=== PATIENT | female | born 1960 | race African-American/Black ===

== ENCOUNTER → 2016-04-14 | Outpatient (CLI) | payer OTHER | LOC: WI 04-06 09:23 | PROVIDERS: ATTEND Internal Medicine | DX: E21.0 Primary hyperparathyroidism (principal); M85.88 Other specified disorders of bone density and structure, other site | CPT/HCPCS: 77080 ==

== ENCOUNTER → 2016-08-18 | Outpatient (CLI) | payer OTHER ==
[2016-08-18 14:58] LABS: ANION GAP 8 (5-19); BLOOD UREA NITROGEN 15 mg/dL (7-20); CALCIUM 11.7 mg/dL (8.4-10.2); CARBON DIOXIDE 29 mmol/L (22-30); CHLORIDE 104 mmol/L (98-107); CREATININE RESULT 0.96 mg/dL (0.52-1.25); GLUCOSE 110 mg/dL (75-110); PHOSPHORUS 2.8 mg/dL (2.5-4.5); POTASSIUM 4.2 mmol/L (3.6-5.0); SODIUM 141.3 mmol/L (137-145)
[2016-08-20 07:28] LABS: VITAMIN D 25-HYDROXY 10.8 ng/mL (30.0-100.0)
== END ==
LOC: OD 13:08
PROVIDERS: ATTEND Physician Assistant Surgical
DX: E21.3 Hyperparathyroidism, unspecified (principal); R89.9 Unspecified abnormal finding in specimens from other organs, systems and tissues
CPT/HCPCS: 36415; 80048; 82306; 83970; 84100

== ENCOUNTER → 2016-08-28 | Outpatient (CLI) | payer OTHER ==
--- NOTE | 2016-08-28 14:32 | RADIOLOGY REPORT (SQ) ---
EXAM DESCRIPTION: NM PARATHYROID IMAGING COMPLETED DATE/TIME: 08/28/2016 1:55 pm REASON FOR STUDY: HYPERPARATHYROIDISM E21.3 HYPERPARATHYROIDISM, UNSPECIFIED R89.9 UNSP ABNORMAL F INDING IN SPECIMENS FROM OTH ORG/TISS COMPARISON: None. RADIONUCLIDE AND DOSE: 21.3 millicuries Tc-99m Sestamibi. The route of agent administration: Intravenous ADDITIONAL DRUGS AND DOSES: None. TECHNIQUE: Early and delayed images of the neck acquired following radionuclide administration. LIMITATIONS: None. FINDINGS: Thyroid: Normal size. Homogeneous activity. Normal washout. No focal lesions. Parathyroid: There appears to be retained activity at the level of the lower pole of the right thyroi d lobe suspicious for a parathyroid adenoma. Other: No other significant findings. IMPRESSION: Retain activity at the level of the lower pole of the right thyroid lobe suspicious for a parathyroid adenoma. TECHNICAL DOCUMENTATION: JOB ID: [id number] [employer]- All Rights Reserved
== END ==
LOC: RAD 07:39
PROVIDERS: ATTEND Surgery
DX: E21.3 Hyperparathyroidism, unspecified (principal); R89.9 Unspecified abnormal finding in specimens from other organs, systems and tissues
CPT/HCPCS: 78070; A9500; Q9969

== ENCOUNTER → 2016-09-01 | Outpatient (CLI) | payer OTHER ==
--- NOTE | 2016-09-01 09:22 | RADIOLOGY REPORT (SQ) ---
EXAM DESCRIPTION: CHEST PA/LATERAL COMPLETED DATE/TIME: 09/01/2016 9:04 am REASON FOR STUDY: HYPERPARATHYROIDISM, UNSPECIFIED COMPARISON: None. EXAM PARAMETERS: NUMBER OF VIEWS: two views TECHNIQUE: Digital Frontal and Lateral radiographic views of the chest acquired. RADIATION DOSE: NA LIMITATIONS: none FINDINGS: LUNGS AND PLEURA: No opacities, masses or pneumothorax. No pleural effusion. MEDIASTINUM AND HILAR STRUCTURES: No masses or contour abnormalities. HEART AND VASCULAR STRUCTURES: Heart normal size. No evidence for failure. BONES: No acute findings. HARDWARE: None in the chest. OTHER: No other significant finding. IMPRESSION: NO SIGNIFICANT RADIOGRAPHIC FINDING IN THE CHEST. TECHNICAL DOCUMENTATION: JOB ID: [id number] [employer]- All Rights Reserved
== END ==
LOC: OD 08:57
PROVIDERS: ATTEND Surgery
DX: E21.3 Hyperparathyroidism, unspecified (principal)
CPT/HCPCS: 71020

== ENCOUNTER 2016-10-21 05:33 | Day surgery (SDC) | payer OTHER ==
[2016-10-14 09:59] LABS: PARTIAL THROMBOPLASTIN TIME 31.3 SEC (23.5-35.8); PROTHROMBIN TIME 12.5 SEC (11.4-15.4)
[2016-10-14 10:25] LABS: ANION GAP 10 (5-19); BLOOD UREA NITROGEN 16 mg/dL (7-20); CALCIUM 11.9 mg/dL (8.4-10.2); CARBON DIOXIDE 26 mmol/L (22-30); CHLORIDE 107 mmol/L (98-107); CREATININE RESULT 0.92 mg/dL (0.52-1.25); GLUCOSE 82 mg/dL (75-110); POTASSIUM 4.5 mmol/L (3.6-5.0); SODIUM 143.2 mmol/L (137-145)
--- NOTE | 2016-10-14 19:43 | EKG REPORT ---
SEVERITY:- ABNORMAL ECG - SINUS RHYTHM FIRST DEGREE AV BLOCK : Confirmed by: Peyman Manning MD 14-Oct-2016 19:43:09
[~2016-10-21 05:33] MED LIST: LACTATED RINGERS 1000 ML IV PRN; LIDOCAINE 0.5% INJ-PF (5 MG/ML) 50 ML SDV SUBCUT PRN
[2016-10-21] MEDS ORDERED: MICROFIBRILLAR COLLAGEN 1 GM PACK ONE (06:38)
[2016-10-21] MEDS ORDERED: MIDAZOLAM 2 MG/2 ML INJ ONE (07:17)
[2016-10-21] MEDS ORDERED: FENTANYL CITRATE INJ/PF 250 MCG/5 ML AMPULE ONE (07:17)
[2016-10-21] MEDS ORDERED: MORPHINE SULFATE 10 MG/ML INJ ONE (07:17)
[2016-10-21] MEDS ORDERED: PROPOFOL INJ 200 MG/20 ML VIAL IV ONE (07:17)
[2016-10-21] MEDS ORDERED: MEPERIDINE HCL/PF INJ 25 MG/1 ML DISP.SYRIN IV PRN (08:17)
[2016-10-21] MEDS ORDERED: MORPHINE SULFATE 10 MG/ML INJ IV PRN ×3 (08:17→08:47)
[2016-10-21] MEDS ORDERED: DIPHENHYDRAMINE HCL 50 MG/ML VIAL IV PRN (08:17)
[2016-10-21] MEDS ORDERED: FENTANYL CITRATE INJ/PF 100 MCG/2 ML AMPUL IV PRN ×3 (08:17)
[2016-10-21] MEDS ORDERED: PROMETHAZINE HCL INJ 25 MG/1 ML VIAL IV PRN ×2 (08:17)
[2016-10-21] MEDS ORDERED: LIDOCAINE 1% INJ-PF (10 MG/ML) 30 ML SDV ONE (08:27)
[2016-10-21] MEDS ORDERED: ONDANSETRON HCL INJ/PF 4 MG/2 ML SDV IV PRN (08:39)
[2016-10-21] MEDS ORDERED: ACETAMINOPHEN 325 MG TABLET PO PRN (08:47)
[2016-10-21] MEDS ORDERED: DEXTROSE 5%-LACTATED RINGERS 1,000 ML IV PRN (08:47)
--- NOTE | 2016-10-21 08:51 | Operative Report ---
Operative Report DATE OF SURGERY: 10/21/16 PREOPERATIVE DIAGNOSIS: Primary hyperparathyroidism POSTOPERATIVE DIAGNOSIS: Same OPERATION: Neck exploration with right lower parathyroidectomy. Use of intraoperative ultrasonography SURGEON: MCKAY P[employer] MECHANIC: SHARON CURRIE ANESTHESIA: GA TISSUE REMOVED OR ALTERED: 1 right lower neck parathyroid gland consistent with adenoma COMPLICATIONS: None ESTIMATED BLOOD LOSS: Scant INTRAOPERATIVE FINDINGS: See below PROCEDURE: The patient was taken from the preop holding area to the main operating room where general anesthesia was induced. Arms were tucked to the patient's side neck extended patient placed in a semi-recumbent position. Neck exposed, prepped and draped in sterile fashion. Surgical plan and surgical timeout were conducted. Focused ultrasound of the neck, with attention to the right lower neck and inferior pole of the right thyroid lobe showed a hypoechoic density approximately centimeter in length between the lateral aspect of the thyroid gland and the carotid artery. We felt this represented the adenoma. Furthermore patient's preoperative sestamibi scan localized to the right lower back in the vicinity of the inferior pole of the right lower lobe. Therefore we approached the neck with the intent to perform a wrist exploration, with a single parathyroid gland removal. A standard transcervical incision was made with a #10 blade approximately 2 fingerbreadths above the sternal notch. The length of incision was approximately 4 and half centimeters. The superior and inferior skin and platysma flaps were raised uneventfully. Strap muscles were divided midline, taking care to visualize all you so as not to inadvertently remove any parathyroid tissue adhesed to the inferior surface of the strap muscles. Once the strap muscles on the patient's right side of the neck were retracted laterally, we were able to mobilize the right inferior pole thyroid lobe. This was somewhat lobulated but otherwise normal. There are no toño nodules here. The trachea below the Reglan was also inspected. We now turned our attention to the loose adventitia overlying the carotid artery. Approximately 2 cm below the inferior pole of the right thyroid lobe was a small patch of fatty tissue overlying the common carotid artery. We opened this fatty veil and underneath it revealed an enlarged parathyroid gland. This was a somewhat triangular-shaped mass approximately a 1 cm diameter with the characteristic chocolate brownish hue, distinctly separate from the fatty sheath. Gingerly the gland from the surrounding fatty tissue such that the gland was and now suspended solely by its pedicle at this point I felt that this was in fact an enlarged parathyroid gland , consistent with a parathyroid adenoma, and consistent with the preoperative imaging studies, therefore I felt amputation of this structure at this point in the operation was appropriate. The pedicle was clipped with 2 small hemoclips and the gland amputated. The specimen was taken directly to pathology was analyzed by Dr. Hayes. It would approximately 0.13 g. Frozen section was performed and I was present for the review. Interpretation was that of parathyroid tissue, with elements of hyper cellularity consistent with a parathyroid adenoma. Because of the concordance of the preoperative and intraoperative findings, I felt it was prudent to stop at this point, not explore all the other glands and closed the patient's neck. The patient's neck was taken out of extension, hemostasis checked and it was excellent. Strap muscles closed in midline with 2 -0 Vicryl skin and platysma closed with 3-0 Vicryl interrupted suture skin was anesthetized with percent lidocaine plain. The neck was washed off, then closed with Dermabond skin glue. Patient taught procedure well, extubated and taken recovery in stable condition. The physician assistant operator, Ms. Chappell, provided assistance during this case by: assisting retracting tissue, instillation of local anesthesia and closure of skin incisions.
[2016-10-21] MEDS ORDERED: FENTANYL CITRATE INJ/PF 100 MCG/2 ML AMPUL ONE (09:04)
[2016-10-21] MEDS ORDERED: SUCCINYLCHOLINE CHLORIDE INJ 200 MG/10 ML VIAL ONE (15:28)
[2016-10-21] MEDS ORDERED: DEXAMETHASONE SOD PHOSPHATE INJ 4 MG/1 ML VIAL ONE (15:28)
[2016-10-21] MEDS ORDERED: ROCURONIUM BROMIDE INJ 50 MG/5 ML VIAL IV ONE (15:28)
[2016-10-21] MEDS ORDERED: ONDANSETRON HCL INJ/PF 4 MG/2 ML SDV ONE (15:28)
[2016-10-21] MEDS: CEFAZOLIN 1 GM/D5W RTU 1 GM/50 ML RTUPB IV PRN ×3 (21:20→22:41)
--- NOTE | 2016-10-22 08:53 | PDOC DISCHARGE SUMMARY ---
Discharge Summary (SDC) - Discharge Final Diagnosis: hypercalcemia Date of Surgery: 10/21/16 Discharge Date: 10/22/16 Condition: Stable Treatment or Instructions: [facility] [address] [place] [id number] Discharge Instructions: Neck Surgery 1. General Information: a. Do not drive a car or operate machinery for 1-2 weeks or as long as taking narcotics for pain. b. Do not consume alcohol, tranquilizers, sleeping medications or any non- prescribed medications for 24 hours unless approved by your doctor or as long as taking pain medication. c. Do not make important decisions or sign any important papers for the first 24 hours after surgery. d. When discharged home the same day of surgery have a responsible person with you for the first night. 2. Activity Restrictions: 2 weeks a. Avoid heavy lifting > 10 lbs, straining, sports, mowing lawn, shoveling snow, vacuum cleaning and bending over a lot. Limit bending to taking a shower and getting dressed. Sleep with head elevated (2 pillows). b. Walking is important to avoid blood clots in the legs and deep breathing can prevent pneumonia. c. It is fine to go up and down steps, ride in a car, and use a stationary bike with low resistance. 3. Treatment: a. May shower 24 hours after surgery; if your incision was glued you may wash your neck and expect glue to fall off in about 2 weeks. b. Do not use oils, powders or lotion on your incision until after the first postoperative visit. Then you may begin to apply daily to the incision a cream of your choice (Vitamin E, cocoa butter, scar creams) to help soften the scar. c. If you are fair skinned it would be christensen to use sunscreen on the scar for the first 6 months or keep it covered to avoid tanning pigment deposits being trapped in the scar creating a dark line instead of a pink scar. 4. Medications: a. You may take Tylenol or Motrin for pain. b. Plain Tylenol, Advil or Aleve as you transition from the narcotic. Many adults find good pain relief with Ibuprofen 600-800 mg three times a day with meals to work well to avoid narcotic use. High doses of Ibuprofen should only be used for short courses since it can cause indigestion, ulcer bleeding in the stomach and harm kidney function. c. You should resume all normal medications unless a change is specified by your doctors. d. Antibiotic therapy if needed ( NONE) ____ 5. Diet: a. If going home same day of surgery you should begin with clear liquids and if do well then advance to a normal diet with foods low in fat and protein. Small portion sizes may be christensen the first night to lessen risk of vomiting. b. When discharged after a hospital stay you may resume a normal diet. 6. Notify Physician If: a. Worsening of pain or swelling in neck, persistent bleeding at the operative site, nausea and vomiting, fever above 101, unable to urinate and bladder pressure after 8-12 hours, increased redness, drainage, or foul smelling discharge from the incision. b. If you have difficulty breathing or chest pain, call an ambulance and/or go to the Emergency Room. 7. Follow Up Care: a. Schedule a follow up appointment with your doctor for 2 weeks. In the event of any postoperative problems or questions or you may call the office during business hours or the On-Call physician evenings and weekends at [facility]. [facility] 8. I understand the instructions for my postoperative care as described above and a copy has been given to me. Patient/Significant Other Witness Date Referrals: ROSY BLAIR MD [Primary Care Provider] - Discharge Diet: As Tolerated Discharge Activity: No Lifting Over 10 Pounds Report the Following to Your Physician Immediately: Increase in Pain, Fever over 101 Degrees, Swelling, Drainage-Foul Smelling
--- NOTE | 2016-10-22 09:03 | PDOC PROGRESS REPORT ---
Subjective Progress Note for:: 10/22/16 Subjective:: Feels well. No complaints. Physical Exam Vital Signs: Temp Pulse Resp BP Pulse Ox 98.1 F 61 18 125/73 94 10/22/16 07:33 10/22/16 07:33 10/22/16 07:33 10/22/16 07:33 10/22/16 07:33 Intake & Output 10/21/16 10/22/16 10/23/16 06:59 06:59 06:59 Intake Total 0 2949 Output Total 3160 Balance 0 -211 Weight 97.52 kg 97.52 kg General appearance: PRESENT: no acute distress, cooperative Neck exam: PRESENT: other - Wound clean dry and intact. No swelling and no erythema and no bruising. No hoarseness Respiratory exam: PRESENT: clear to auscultation fide Cardiovascular exam: PRESENT: RRR Results Laboratory Results: 10/21/16 06:00 10/21/16 10/21/16 10/22/16 16:30 21:57 05:33 Calcium 12.2 H* 11.9 H 11.8 H Assessment & Plan - Diagnosis (1) Hyperparathyroidism Is this a current diagnosis for this admission?: Yes Plan: Status post parathyroid adenoma resection. Patient looks good postoperatively. Her calcium has remained stable postoperatively. Will discharge patient home with follow-up with Dr. Tinsley next week. we will check a calcium next week.
--- NOTE | 2016-10-22 09:08 | PDOC DISCHARGE SUMMARY ---
Discharge Summary (SDC) - Discharge Final Diagnosis: Hyper parathyroidism Date of Surgery: 10/21/16 Discharge Date: 10/22/16 Condition: Good Treatment or Instructions: [facility] [address] [place] [id number] Discharge Instructions: Neck Surgery 1. General Information: a. Do not drive a car or operate machinery for 1-2 weeks or as long as taking narcotics for pain. b. Do not consume alcohol, tranquilizers, sleeping medications or any non- prescribed medications for 24 hours unless approved by your doctor or as long as taking pain medication. c. Do not make important decisions or sign any important papers for the first 24 hours after surgery. d. When discharged home the same day of surgery have a responsible person with you for the first night. 2. Activity Restrictions: 2 weeks a. Avoid heavy lifting > 10 lbs, straining, sports, mowing lawn, shoveling snow, vacuum cleaning and bending over a lot. Limit bending to taking a shower and getting dressed. Sleep with head elevated (2 pillows). b. Walking is important to avoid blood clots in the legs and deep breathing can prevent pneumonia. c. It is fine to go up and down steps, ride in a car, and use a stationary bike with low resistance. 3. Treatment: a. May shower 24 hours after surgery; if your incision was glued you may wash your neck and expect glue to fall off in about 2 weeks. b. Do not use oils, powders or lotion on your incision until after the first postoperative visit. Then you may begin to apply daily to the incision a cream of your choice (Vitamin E, cocoa butter, scar creams) to help soften the scar. c. If you are fair skinned it would be christensen to use sunscreen on the scar for the first 6 months or keep it covered to avoid tanning pigment deposits being trapped in the scar creating a dark line instead of a pink scar. 4. Medications: a. You may take Tylenol or Motrin for pain. b. Plain Tylenol, Advil or Aleve as you transition from the narcotic. Many adults find good pain relief with Ibuprofen 600-800 mg three times a day with meals to work well to avoid narcotic use. High doses of Ibuprofen should only be used for short courses since it can cause indigestion, ulcer bleeding in the stomach and harm kidney function. c. You should resume all normal medications unless a change is specified by your doctors. d. Antibiotic therapy if needed ( NONE) ____ 5. Diet: a. If going home same day of surgery you should begin with clear liquids and if do well then advance to a normal diet with foods low in fat and protein. Small portion sizes may be christensen the first night to lessen risk of vomiting. b. When discharged after a hospital stay you may resume a normal diet. 6. Notify Physician If: a. Worsening of pain or swelling in neck, persistent bleeding at the operative site, nausea and vomiting, fever above 101, unable to urinate and bladder pressure after 8-12 hours, increased redness, drainage, or foul smelling discharge from the incision. b. If you have difficulty breathing or chest pain, call an ambulance and/or go to the Emergency Room. 7. Follow Up Care: a. Schedule a follow up appointment with your doctor for 2 weeks. In the event of any postoperative problems or questions or you may call the office during business hours or the On-Call physician evenings and weekends at [facility]. [facility] 8. I understand the instructions for my postoperative care as described above and a copy has been given to me. Patient/Significant Other Witness Date Referrals: ROSY BLAIR MD [Primary Care Provider] - Discharge Activity: No Lifting Over 10 Pounds Report the Following to Your Physician Immediately: Increase in Pain, Fever over 101 Degrees, Swelling, Drainage-Foul Smelling Other Items to Report to MD: Swelling, shortness of breath, paresthesias.
[2016-10-22 09:43] VITALS: BP 124/65
[2016-10-22] MEDS ORDERED: HYDROCHLOROTHIAZIDE 12.5 MG CAPSULE PO SCH (10:00)
[2016-10-22] MEDS ORDERED: [UNRECOGNIZED DRUG - OTHER] PO SCH (10:00)
[2016-10-22] MEDS ORDERED: VALSARTAN 160 MG TABLET PO SCH (10:00)
[2016-10-22] MEDS ORDERED: VALSARTAN PO SCH (10:00)
[2016-10-22] MEDS ORDERED: HYDROCHLOROTHIAZIDE PO SCH (10:00)
== END 2016-10-22 10:21 | disposition home or self-care (01) ==
LOC: OROUT 05:33 → 4W 10:15 → OROUT 10-22 10:21
PROVIDERS: ATTEND Surgery
PROC: 0GTR0ZZ Resection of Parathyroid Gland, Open Approach (ICD-10-PCS; principal; 2016-10-21 07:30)
DX: E21.3 Hyperparathyroidism, unspecified (principal); R01.1 Cardiac murmur, unspecified; I10 Essential (primary) hypertension; R00.2 Palpitations; Z79.899 Other long term (current) drug therapy
CPT/HCPCS: 93005; 36415 ×2; 82310; 84132; 85610; 85730; 80048; 88305 ×2; 88331 ×2; 94799; 93010; 60500; J2250; J0690; J3490 ×2; J1100; J3010 ×2; J0330; J2405; J2704; 320; J2270

== ENCOUNTER → 2016-10-24 | Outpatient (CLI) | payer OTHER | LOC: OD 09:35 | PROVIDERS: ATTEND Physician Assistant Surgical | DX: E21.3 Hyperparathyroidism, unspecified (principal); E83.52 Hypercalcemia | CPT/HCPCS: 36415; 82310 ==

== ENCOUNTER → 2016-11-02 | Outpatient (CLI) | payer OTHER | LOC: OD 17:10 | PROVIDERS: ATTEND Physician Assistant Surgical | DX: E21.3 Hyperparathyroidism, unspecified (principal); E83.52 Hypercalcemia | CPT/HCPCS: 36415; 82306; 82310 ==

== ENCOUNTER → 2016-12-19 | Outpatient (CLI) | payer OTHER | LOC: OD 10:48 | PROVIDERS: ATTEND Surgery | DX: E21.3 Hyperparathyroidism, unspecified (principal) | CPT/HCPCS: 36415; 82310; 83970 ==

== ENCOUNTER → 2018-03-28 | Outpatient (CLI) | payer OTHER ==
--- NOTE | 2018-03-28 18:00 | RADIOLOGY REPORT (SQ) ---
EXAM DESCRIPTION: VENOUS UNILATERAL LOWER COMPLETED DATE/TIME: 03/28/2018 5:48 pm REASON FOR STUDY: RLE SWELLING R22.41 LOCALIZED SWELLING, MASS AND LUMP, RIGHT LOWER LIMB COMPARISON: None. TECHNIQUE: Dynamic and static contreras scale and color images acquired of the right leg venous system. S elected spectral images acquired with additional compression and augmentation maneuvers. The contrala teral common femoral vein and saphenofemoral junction were also imaged. Images stored on PACS. LIMITATIONS: None. FINDINGS: COMMON FEMORAL: Normal phasicity, compression and augmentation. No visualized echogenic ma terial on contreras scale. No defects on color images. FEMORAL: Normal compression and augmentation. No visualized echogenic material on contreras scale. No defe cts on color images. POPLITEAL: Normal compression, augmentation. No visualized echogenic material on contreras scale. No defec ts on color images. CALF VESSELS: Normal compression, augmentation. No visualized echogenic material on contreras scale. No de fects on color images. GSV and SSV: Normal compression, augmentation. No visualized echogenic material on contreras scale. No def ects on color images. ANY DEEP VENOUS INSUFFICIENCY: Not evaluated. ANY EVIDENCE OF POPLITEAL CYST: No. OTHER: No other significant finding. CONTRALATERAL COMMON FEMORAL VEIN AND SAPHENOFEMORAL JUNCTION: Normal phasicity, compression and augmentation. No visualized echogenic material on contreras scale. No de fects on color images. IMPRESSION: NO EVIDENCE DVT OR SVT IN THE RIGHT LEG. TECHNICAL DOCUMENTATION: JOB ID: [id number] [employer]- All Rights Reserved Reading location - IP/workstation name: [email or web address]
== END ==
LOC: SP 20:00
PROVIDERS: ATTEND Internal Medicine
DX: R22.41 Localized swelling, mass and lump, right lower limb (principal)
CPT/HCPCS: 93971